=== PATIENT | female | born 1985 | race Caucasian/White ===

== ENCOUNTER → 2016-06-08 | Outpatient (CLI) | payer OTHER ==
[2016-06-08 12:00] LABS: CH 30.3; CHCM 34.6; HCT 37.8 % (34.0-46.0); HDW 2.67; HGB 12.9 gm/dL (11.4-16.0); MCH 30.1 pg (25.0-35.0); MCHC 34.2 g/dL (31.0-37.0); MCV 88.1 fL (80.0-100.0); Mean Platelet Volume 7.2; RDW 13.6 % (11.5-15.5); WBC 8.1 k/uL (3.8-10.6)
[2016-06-08 12:15] LABS: Glucose 71 mg/dL (74-99); Non-African American GFR(MDRD) >60 (>60 ml/min/1.73 sqM)
[2016-06-08 12:32] LABS: Appearance,Urine Clear (Clear); Bacteria,Urine Rare /hpf; Bilirubin,Urine Negative (Negative); Glucose,Urine (UA) Negative (Negative); Ketones,Urine Negative (Negative); Leukocyte Esterase,Urine Moderate (Negative); Mucus,Urine Rare /hpf; Nitrite,Urine Negative (Negative); PH, Urine 7.5 (5.0-8.0); Particle Count 1424; Protein,Urine Negative (Negative); RBC,Urine <1 /hpf (0-5); Squamous Epithelial Cell,Urine 2 /hpf (0-4); UA Billing (MACRO vs. MICRO) MICRO; Urobilinogen,Urine <2.0 mg/dL (<2.0); WBC,Urine <1 /hpf (0-5)
[2016-06-08 12:46] LABS: Hepatitis B Surface Ag Index 0.04
[2016-06-08 17:00] LABS: Treponemal Ab Non-Reactive (Non-Reactive)
[2016-06-09 07:22] LABS: HIV-1/HIV-2 Ab Screen NONREAC (NON REAC)
== END | disposition home or self-care (01) ==
LOC: LABWHC1 11:04
PROVIDERS: ATTEND Obstetrics & Gynecology
DX: O26.812 Pregnancy related exhaustion and fatigue, second trimester (principal); Z3A.00 Weeks of gestation of pregnancy not specified
CPT/HCPCS: 36415; 81001; 82105; 82565; 82677; 82947; 84702; 85027; 86336; 86762; 86777; 86778; 86780; 86850; 86900; 86901; 87086; 87340; 87389

== ENCOUNTER → 2016-06-23 | Outpatient (CLI) | payer BC, OTHER ==
--- NOTE | 2016-06-23 14:29 | US ---
EXAMINATION TYPE: US OB anatomy transabd DATE OF EXAM: 06/23/2016 9:56 AM COMPARISON: NONE HISTORY: LGA TECHNIQUE: OBTA EXAM MEASUREMENTS: GESTATIONAL AGE / DATING Physician Established: (19 weeks/0 days) EDC: 11/17/2016 Dates by LMP: (22weeks/3days) EDC: 10/24/2016 Dates by First Scan: (19 weeks/0 days) EDC: 11/17/2016 Dates by Current Scan for: (19 weeks/0 days) EDC: 11/17/2016 SURVEY IUP: Single PLACENTA: Posterior PREVIA: No previa ANAI: 12.5 cm normal CERVICAL LENGTH (transabdominal: norm > 3.0cm): 3.1 cm BIOMETRY PRESENTATION: Breech LIE: Transverse lie with head maternal L BPD: 4.3 cm 19 weeks / 1 days HC: 15.9 cm 18 weeks / 6 days AC: 13.7 cm 19 weeks / 1 days FL: 2.8 cm 18weeks / 4 days ESTIMATED WEIGHT IN GRAMS: 261 grams ESTIMATED WEIGHT IN LBS/OZS: 0 lbs. 9 oz. WEIGHT PERCENTAGE BASED ON ESTABLISHED DATE: 37 % HC/AC: 1.1 normal FL/AC: 20 normal HEART RATE: 161bpm RHYTHM: Normal ANATOMY SEEN (within normal limits): * Lateral Vent (< 1 cm) 0.7 cm * Cisterna Magna (< 1.1 cm) 0.3 cm * Nuchal Fold (< 0.6 cm) 0.2 cm * Cerebellum (varies with age) 1.8 cm Choroid Plexus (bilateral) Midline Falx Cavus Septi Pellucidi Four Chamber Heart Outflow tracts: LVOT/RVOT Stomach Situs Nose / Lips Diaphragm Kidneys (bilateral) Bladder Cord Insert Three Vessel Cord Longitudinal Spine Transverse Spine Arms (bilateral) Legs (bilateral) TECHNOLOGIST IMPRESSION: Normal appearing . IMPRESSION: 1. Single intrauterine gestation estimated at 19 weeks 0 days gestation. This would've a calculated E DC of 11/17/2016. Cardiac activity measures 161 bpm. Correlate findings with the physician established EDC.
== END | disposition home or self-care (01) ==
LOC: RADUSWWP 08:46
PROVIDERS: ATTEND Obstetrics & Gynecology
DX: O36.62X0 Maternal care for excessive fetal growth, second trimester, not applicable or unspecified (principal); Z3A.19 19 weeks gestation of pregnancy
CPT/HCPCS: 76811

== ENCOUNTER → 2016-06-29 | Outpatient (CLI) | payer BC, OTHER ==
--- NOTE | 2016-06-29 09:41 | USB ---
Reason for exam: clinical finding. Indicated problem(s): palpable abnormality in the right breast. Physical Findings: Nurse Summary: right breast with lump x 2 weeks per patient (nurse dw). US Breast RT Right breast ultrasound including all four quadrants, the retroareolar region and axilla demonstrates no cystic or solid lesion seen. These results were verbally communicated with the patient and result sheet given to the patient on 06/29/16. ASSESSMENT: Negative, BI-RAD 1 RECOMMENDATION: Clinical management of the right breast. Manage patient on a clinical basis.
== END | disposition home or self-care (01) ==
LOC: RADUSWWP 08:43
PROVIDERS: ATTEND Obstetrics & Gynecology
DX: N63 Unspecified lump in breast (principal)

== ENCOUNTER → 2016-07-27 | Outpatient (CLI) | payer BC, OTHER ==
[2016-07-27 10:42] LABS: CH 30.7; CHCM 34.2; HCT 38.1 % (34.0-46.0); HDW 2.72; HGB 12.1 gm/dL (11.4-16.0); MCH 28.6 pg (25.0-35.0); MCHC 31.6 g/dL (31.0-37.0); MCV 90.3 fL (80.0-100.0); Mean Platelet Volume 6.7; RBC 4.22 m/uL (3.80-5.40); RDW 13.6 % (11.5-15.5)
== END ==
LOC: LABWHC1 09:18
PROVIDERS: ATTEND Obstetrics & Gynecology
DX: Z34.02 Encounter for supervision of normal first pregnancy, second trimester (principal)
CPT/HCPCS: 36415; 82950; 85027

== ENCOUNTER → 2016-09-29 | Outpatient (CLI) | payer BC, OTHER ==
--- NOTE | 2016-09-29 15:22 | US ---
EXAMINATION TYPE: US OB anatomy transabd DATE OF EXAM: 09/29/2016 10:12 AM COMPARISON: US HISTORY: O36.63XO Large for dates 3rd trimester LGA TECHNIQUE: Transabdominal (TA) EXAM MEASUREMENTS: GESTATIONAL AGE / DATING Physician Established: (33 weeks/0 days) EDC: 11/17/2016 Dates by LMP: (36 weeks/3 days) EDC: 10/24/2016 Dates by First Scan: (33 weeks/0 days) EDC: 11/17/2016 Dates by Current Scan for: (31 weeks/2 days) EDC: 11/29/2016 SURVEY IUP: Single PLACENTA: Fundal PREVIA: No previa ANAI: 12.2 cm Normal CERVICAL LENGTH (transabdominal: norm > 3.0cm): 3.6 cm BIOMETRY PRESENTATION: Breech LIE: Longitudinal BPD: 7.8 cm 31 weeks / 2 days HC: 28.4 cm 31 weeks / 1 days AC: 27.4 cm 31 weeks / 3 days FL: 6.3 cm 32 weeks / 3 days ESTIMATED WEIGHT IN GRAMS: 1814 grams ESTIMATED WEIGHT IN LBS/OZS: 4 lbs. 0 oz. WEIGHT PERCENTAGE BASED ON ESTABLISHED DATE: 10.3 % HC/AC: 1.04 Normal FL/AC: 22.84 Normal HEART RATE: 138 bpm RHYTHM: Normal ANATOMY SEEN (within normal limits): Midline Falx Cavus Septi Pellucidi Four Chamber Heart Outflow tracts: RVOT Stomach Situs Nose / Lips Diaphragm Kidneys (bilateral) Bladder Cord Insert Three Vessel Cord Longitudinal Spine Transverse Spine ANATOMY NOT SEEN: Due to advanced age, crowding * Lateral Vent (< 1 cm) cm * Cisterna Magna (< 1.1 cm) cm * Nuchal Fold (< 0.6 cm) cm * Cerebellum (varies with age) cm Choroid Plexus (bilateral) Outflow Tracts: LVOT Arms (bilateral) Legs (bilateral) Viable single IUP measuring 31 weeks 2 days with a heart rate of 138bpm and an estimated delivery kelly e of 11/29/2016. IMPRESSION: 1. Exam limited due to age. 2. Single intrauterine gestation estimated at 31 weeks 2 days gestation. This would have a calculated EDC of 11/29/2016. 3. Cardiac activity measures 138 bpm.
== END | disposition home or self-care (01) ==
LOC: RADUSWWP 09:36
PROVIDERS: ATTEND Obstetrics & Gynecology
DX: O36.63X0 Maternal care for excessive fetal growth, third trimester, not applicable or unspecified (principal); Z3A.33 33 weeks gestation of pregnancy
CPT/HCPCS: 76811

== ENCOUNTER 2016-11-10 10:20 | Inpatient (IN) | payer BC, OTHER ==
[2016-11-10] MEDS ORDERED: CITRIC ACID-SODIUM CITRATE 15 ML CUP PO ONE (11:10)
[2016-11-10] MEDS ORDERED: ceFAZolin 2 GM in SODIUM CHLORIDE 0.9% 100 ML IVPB ONE (11:10)
[2016-11-10] MEDS ORDERED: LACTATED RINGERS 1,000 ML IV ONE (11:10)
[2016-11-10 11:35] VITALS: BMI 23.6
[2016-11-10 11:37] LABS: Basophils % (A) 0 %; CH 31.3; CHCM 35.9; Eosinophils % (A) 0 %; HCT 39.2 % (34.0-46.0); HDW 2.39; Luc # (Auto) 0.08; Luc % (Auto) 1; Lymphocytes # (A) 1.3 k/uL (1.0-4.8); Lymphocytes % (A) 10 %; MCH 31.2 pg (25.0-35.0); MCHC 35.7 g/dL (31.0-37.0); MCV 87.5 fL (80.0-100.0); Mean Platelet Volume 8.3; Monocytes # (A) 0.4 k/uL (0-1.0); Monocytes % (A) 3 %; Neutrophils # (A) 11.2 k/uL (1.3-7.7); Neutrophils % (A) 86 %; RBC 4.49 m/uL (3.80-5.40); WBC (Perox) 12.62
[2016-11-10 11:45] LABS: ALT 41 U/L (9-52); AST 31 U/L (14-36); Blood Urea Nitrogen 19 mg/dL (7-17); LDH 602 U/L (313-618); Non-African American GFR(MDRD) >60 (>60 ml/min/1.73 sqM); Uric Acid 6.7 mg/dL (3.7-7.4)
[2016-11-10 12:00] LABS: INR 0.9 (<1.1); Partial Thromboplastin Time 23.2 sec (22.0-30.0); Prothrombin Time 9.4 sec (9.0-12.0)
[2016-11-10 12:13] LABS: Appearance,Urine Cloudy (Clear); Bacteria,Urine Rare /hpf; Bilirubin,Urine Negative (Negative); Glucose,Urine (UA) Negative (Negative); Ketones,Urine Negative (Negative); Leukocyte Esterase,Urine Small (Negative); Mucus,Urine Few /hpf; Nitrite,Urine Negative (Negative); PH, Urine 6.5 (5.0-8.0); Particle Count 5995; Protein,Urine 2+ (Negative); RBC,Urine 14 /hpf (0-5); Specific Gravity,Urine 1.029 (1.001-1.035); Squamous Epithelial Cell,Urine 6 /hpf (0-4); UA Billing (MACRO vs. MICRO) MICRO; WBC,Urine 4 /hpf (0-5)
[2016-11-10] MEDS ORDERED: OXYTOCIN 10 UNIT/ML 1 ML VIAL ONE (12:28)
[2016-11-10] MEDS ORDERED: MORPHINE SULFATE (PF) 0.3 MG/0.3 ML SYR ONE (12:28)
[2016-11-10] MEDS ORDERED: ONDANSETRON 4 MG/2 ML VIAL ONE (12:28)
[2016-11-10] MEDS ORDERED: KETOROLAC 30 MG/ML 1 ML VIAL ONE (12:28)
[2016-11-10] MEDS ORDERED: fentaNYL (PF) 50 MCG/ML 2 ML AMP ONE (12:28)
[2016-11-10] MEDS ORDERED: NALBUPHINE 10 MG/ML AMPUL ONE (12:28)
[2016-11-10] MEDS ORDERED: diphenhydrAMINE 25 MG CAP PO PRN (13:19)
[2016-11-10] MEDS ORDERED: NALOXONE 0.4 MG/ML 1 ML VIAL IV PRN (13:19)
[2016-11-10] MEDS ORDERED: METOCLOPRAMIDE 5 MG/ML 2 ML VIAL IVP PRN (13:19)
[2016-11-10] MEDS ORDERED: diphenhydrAMINE 50 MG/ML 1 ML VIAL IVP PRN ×2 (13:19)
[2016-11-10] MEDS ORDERED: ONDANSETRON 4 MG/2 ML VIAL IVP PRN (13:19)
[2016-11-10] MEDS ORDERED: ZOLPIDEM 5 MG TAB PO PRN (13:19)
[2016-11-10] MEDS ORDERED: ACETAMINOPHEN TAB 325 MG TAB PO PRN (13:19)
[2016-11-10] MEDS ORDERED: diphenhydrAMINE 50 MG CAP PO PRN (13:19)
[2016-11-10] MEDS ORDERED: Acetaminophen-Codeine 300-30mg TAB PO PRN (13:19)
--- NOTE | 2016-11-10 13:26 | P.HPOB ---
History of Present Illness H&P Date: 11/10/16 Chief Complaint: Intrauterine at term: Active labor: Ashvin breech Netta is a 31-year-old at 38 weeks 6 days gestation arise in active labor making cervical change. She is breech from previous ultrasounds and she continues to be breech today. She is in active labor. We'll plan to move forward with primary low-transverse section for same area her course had been generally speaking unremarkable and she was feeling well at this time she did have a small lump in her breast that had been evaluated by surgery but no treatments have been rendered to this point. We'll continue to monitor that and refer back to surgery. Pertinent labs did include O+ blood type, rubella was immune, hepatitis B surface antigen and RPR were both negative as well. On physical exam vital signs are stable and afebrile. Heart regular, lungs clear, extremities without pain. Abdomen soft gravid uterus is noted. heart tones are reactive in the 140s. Risks/benefits/ alternatives to this procedure were discussed with the patient in detail and all questions were answered for her prior to proceeding to the operating room. Assessment intrauterine at term. Active labor. Breech presentation. Plan primary low transverse section Past Medical History Past Medical History: No Reported History History of Any Multi-Drug Resistant Organisms: None Reported Past Surgical History: No Surgical Hx Reported Past Anesthesia/Blood Transfusion Reactions: No Reported Reaction Additional Past Anesthesia/Blood Transfusion Reaction / Comment(s): NO PRIOR SX OR ANESTHESIA HX Past Psychological History: No Psychological Hx Reported Smoking Status: Never smoker Past Alcohol Use History: None Reported Past Drug Use History: None Reported - Past Family History Mother Family Medical History: No Reported History Additional Family Medical History / Comment(s): sodium problems, bladder issues- prolapse Father Family Medical History: Coronary Artery Disease (CAD) Additional Family Medical History / Comment(s): Medications and Allergies Home Medications Medication Instructions Recorded Confirmed Type Calcium Carbonate [Tums] 500 mg PO TID PRN 11/10/16 11/10/16 History Pnv,Calcium 72/Iron/Folic Acid 1 tab PO DAILY 11/10/16 11/10/16 History [ Plus Tablet] Allergies Allergy/AdvReac Type Severity Reaction Status Date / Time No Known Allergies Allergy Verified 11/10/16 11:08 Exam Osteopathic Statement: *. No significant issues noted on an osteopathic structural exam other than those noted in the History and Physical/Consult. - Vital Signs Vital signs: Vital Signs Temp Pulse Resp BP Pulse Ox 11/10/16 11:22 96.4 F L 78 18 136/98 100 11/10/16 10:40 136/105 11/10/16 10:33 138/100 11/10/16 10:30 96.4 F L 78 18 136/98 100 Intake and Output 11/09/16 11/10/16 11/10/16 22:59 06:59 14:59 Other: Weight 56.699 kg Patient Weight 11/11/16 06:59 Weight 56.699 kg - OBG Physical Exam Abdomen: bowel sounds normal, no diffuse tenderness, no bruit present, no guarding noted, no hepatomegaly, no splenomegaly, no mass Results Result Diagrams: 11/10/16 11:15 11/10/16 11:15 Abnormal Lab Results - Last 24 Hours (Table) 11/10/16 11/10/16 11/10/16 Range/Units 11:15 11:15 11:50 WBC 13.0 H (3.8-10.6) k/uL Neutrophils # 11.2 H (1.3-7.7) k/uL BUN 19 H (7-17) mg/dL Urine Appearance Cloudy H (Clear) Urine Protein 2+ H (Negative) Ur Leukocyte Esterase Small H (Negative) Urine RBC 14 H (0-5) /hpf Ur Squamous Epith Cells 6 H (0-4) /hpf Urine Bacteria Rare H (None) /hpf Urine Mucus Few H (None) /hpf
--- NOTE | 2016-11-10 13:30 | P.OP ---
Date of Procedure: 11/10/16 Preoperative Diagnosis: Intrauterine at 38 weeks/active labor/breech presentation Postoperative Diagnosis: Same Procedure(s) Performed: Primary low transverse section from Pfannenstiel Implants: Anesthesia: spinal Surgeon: Sivakumar Shah Manager Motor #1: Sabina Acosta Estimated Blood Loss (ml): 400 IV fluids (ml): 1,500 Urine output (ml): 75 Pathology: other (Placenta) Condition: stable Disposition: floor Indications for Procedure: Operative Findings: Viable female scores 8 and 9 at one and 5 minutes Neeta weight was 5 lbs. 0 oz. 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 She was prepped and draped in normal sterile fashion and placed in dorsal supine position with leftward tilt. Initially a Pfannenstiel skin incision was made and this incision was then carried through to underlying layer of the fascia was second knife. Fascia was then nicked in the midline and this opening was extended laterally with Stanley scissors. Superior and inferior aspect of this incision were then grasped tented up and bluntly and sharply dissected off the rectus muscles. Rectus muscles were then divided the midline and sharp dissection through the peritoneum was made. This opening was then extended superiorly and inferiorly with good visualization of both bowel bladder. Bladder blade was then placed and the vesicouterine peritoneum identified this tissue was then elevated entered with metastases scissors and carried across face the uterus with Metzenbaum scissors. Bladder flap was then digitally created. Knife was then used to incise uterus hemostat was used to perforate through the uterus all the way and the incision was bluntly extended. Clear fluid is noted. Because then delivered bring the baby down into the incision legs were fully delivered first the left shoulders and the right shoulder had the arms swept from the face to deliver a nuchal cord 1 was noted but baby was delivered through that and head was atraumatically delivered. Nursery personnel was present to assume care umbilical cord was clamped cut usual fashion an mouth nares were bulb suctioned. Once this was accomplished placenta was then delivered intact and Pitocin was added to the IV. Uterus was then exteriorized cleared of clots and debris and closed in 2 layers with 0 Vicryl suture. Should be noted the patient did have a what appears to be bicornuate uterus with very small right horn. Blood and debris was then suctioned the posterior cul-de-sac and uterus was reinserted into the abdomen. There needle layer was then closed with 0 Vicryl suture fascial layer was closed with 0 Vicryl suture one layer of 3-0 Vicryl was placed in deep subcuticular tissues to reapproximate skin and close space. Skin was then closed with 3-0 Vicryl on a Jesus needle. Sponge, lap, needle counts were all correct 2. Patient taken to the recovery room in stable and satisfactory condition.
[2016-11-10] MEDS: LACTATED RINGERS 1,000 ML IV SCH (16:31)
[2016-11-10] MEDS: SENNOSIDES-DOCUSATE SODIUM 1 EACH TAB PO SCH (20:25)
[2016-11-10] MEDS: KETOROLAC 30 MG/ML 1 ML VIAL IVP PRN (20:26)
[2016-11-10] MEDS ORDERED: DIPH,PERTUS(ACELL)TETVAC-LF 0.5 ML VIAL IM ONE (22:10)
[2016-11-11] MEDS: LACTATED RINGERS 1,000 ML IV SCH (01:18)
[2016-11-11] MEDS: KETOROLAC 30 MG/ML 1 ML VIAL IVP PRN ×2 (02:54→12:22)
--- NOTE | 2016-11-11 08:18 | P.PNOBGPC ---
Subjective - Subjective Principal diagnosis: Postop day 1 Interval history: Netta is doing very well this morning. She is able to ambulate. Instruments currently she is tolerating clear liquids. She did have some bleeding from around her incision last night a pressure dressing was placed will plan to remove the pressure dressing this afternoon and allow her to shower. She voices no signs or symptoms of acute anemia but CBC is still pending. Vital signs are otherwise stable she's had several slightly elevated blood pressures in the 150/90 range but she is completely asymptomatic. Her heart is regular, lungs are clear, extremities are without pain. Abdomen is otherwise soft and the uterus is firm. We did have a discussion again about shaped for uterus and for us to really be able to tell what is potentially going on she may have to have a hysterosalpingogram but as she did not have any significant problems with the may also not be needed. Assessment postop day 1. Plan continue current care. Objective - Vital Signs Latest vital signs: Vital Signs Temp Pulse Resp BP Pulse Ox 11/11/16 04:00 97.9 F 65 16 127/79 97 11/11/16 00:00 98.4 F 58 L 16 148/92 11/10/16 20:00 97.6 F 64 16 145/96 11/10/16 15:41 65 18 145/89 99 11/10/16 15:17 97.2 F L 65 18 139/90 99 11/10/16 14:47 96.4 F L 63 18 140/68 99 11/10/16 14:17 69 18 141/81 99 11/10/16 14:02 71 18 114/78 95 11/10/16 13:47 96.9 F L 74 18 115/79 99 11/10/16 13:32 68 18 124/82 99 11/10/16 13:17 96.7 F L 63 18 131/80 99 11/10/16 11:22 96.4 F L 78 18 136/98 100 11/10/16 10:40 136/105 11/10/16 10:33 138/100 11/10/16 10:30 96.4 F L 78 18 136/98 100 Intake and Output 11/10/16 11/11/16 11/11/16 22:59 06:59 14:59 Intake Total 675 300 Output Total 1000 1000 Balance -325 -700 Intake: IV 375 Lactated Ringers 1,000 ml 375 @ 125 mls/hr IV .Q8H [facility] Rx#:[id number] Oral 300 300 Output: Urine 600 1000 Uretheral ([place]) 300 Estimated Blood Loss 400 Other: Voiding Method Indwelling Catheter # Voids 1 1 - Labs Labs: Abnormal Lab Results - Last 24 Hours (Table) 11/10/16 11/10/16 11/10/16 Range/Units 11:15 11:15 11:50 WBC 13.0 H (3.8-10.6) k/uL Neutrophils # 11.2 H (1.3-7.7) k/uL BUN 19 H (7-17) mg/dL Urine Appearance Cloudy H (Clear) Urine Protein 2+ H (Negative) Ur Leukocyte Esterase Small H (Negative) Urine RBC 14 H (0-5) /hpf Ur Squamous Epith Cells 6 H (0-4) /hpf Urine Bacteria Rare H (None) /hpf Urine Mucus Few H (None) /hpf
[2016-11-11] MEDS: SENNOSIDES-DOCUSATE SODIUM 1 EACH TAB PO SCH ×2 (08:19→19:47)
[2016-11-11 08:21] LABS: Basophils % (A) 0 %; CH 31.3; CHCM 35.5; Eosinophils # (A) 0.1 k/uL (0-0.7); Eosinophils % (A) 1 %; HCT 33.6 % (34.0-46.0); HDW 2.34; HGB 11.7 gm/dL (11.4-16.0); Luc # (Auto) 0.09; Luc % (Auto) 1; Lymphocytes # (A) 1.5 k/uL (1.0-4.8); Lymphocytes % (A) 13 %; MCV 88.5 fL (80.0-100.0); Mean Platelet Volume 7.8; Monocytes # (A) 0.5 k/uL (0-1.0); Monocytes % (A) 4 %; Neutrophils # (A) 9.7 k/uL (1.3-7.7); Neutrophils % (A) 82 %; RDW 13.3 % (11.5-15.5); WBC 11.8 k/uL (3.8-10.6); WBC (Perox) 12.15
--- NOTE | 2016-11-11 09:22 | P.PN ---
Progress Note - Text Date: 11/11/2016 Time: 827 The patient is status post section Vital signs stable VAS: 0-10 Patient has no complaints of pain. The patient incurred some minimal itching yesterday, this itching is now subsiding. Pain meds to be managed by service.
[2016-11-11] MEDS: Acetaminophen-Codeine 300-30mg TAB PO PRN (19:46)
[2016-11-11] MEDS: IBUPROFEN 600 MG TAB PO PRN (22:20)
[2016-11-12] MEDS: IBUPROFEN 600 MG TAB PO PRN ×2 (04:11→13:49)
[2016-11-12] MEDS: SENNOSIDES-DOCUSATE SODIUM 1 EACH TAB PO SCH (08:58)
[2016-11-12] MEDS: Acetaminophen-Codeine 300-30mg TAB PO PRN (08:59)
[2016-11-12 09:23] VITALS: BP 119/74; PULSE 69; RESP 18; TEMP 98.2
--- NOTE | 2016-11-12 11:36 | P.DS ---
Providers Date of admission: 11/10/16 11:10 Expected date of discharge: 11/12/16 Attending physician: Sivakumar Shah Primary care physician: Stated None Hospital Course: Netta is doing very well postop day 2. She is involuting, voiding, and she is tolerating her diet. She voices no complaints. She is passing flatus. Shows have some gas pain but otherwise is doing well. Her vital signs are stable and she is afebrile. Heart regular, lungs clear, extremities without pain. Abdomen is soft incisions clean dry and intact bowel sounds are noted. Assessment postop day 2. Plan discharged home follow up with me in 1 week. Prescription for pain medication breast pump has been provided all questions are answered and discharge instructions thoroughly reviewed. Assessment postop day 2. Plan discharged home. Patient Condition at Discharge: Good Plan - Discharge Summary New Discharge Prescriptions: New Acetaminophen-Codeine 300-30mg [Tylenol #3] 1 tab PO Q4H PRN #30 tablet PRN Reason: Pain Ibuprofen [Motrin] 600 mg PO Q6HR PRN #30 tab PRN Reason: Pain No Action Calcium Carbonate [Tums] 500 mg PO TID PRN PRN Reason: Heartburn Pnv,Calcium 72/Iron/Folic Acid [ Plus Tablet] 1 tab PO DAILY Discharge Medication List Calcium Carbonate [Tums] 500 mg PO TID PRN 11/10/16 [History] Pnv,Calcium 72/Iron/Folic Acid [ Plus Tablet] 1 tab PO DAILY 11/10/16 [ History] Acetaminophen-Codeine 300-30mg [Tylenol #3] 1 tab PO Q4H PRN #30 tablet [Rx] Ibuprofen [Motrin] 600 mg PO Q6HR PRN #30 tab 11/12/16 [Rx] Follow up Appointment(s)/Referral(s): Sivakumar Shah DO [Doctor of Osteopathic Medicine] - 1 Week Activity/Diet/Wound Care/Special Instructions: No heavy lifting, limit stairs and driving, and pelvic rest. If any high temperatures, heavy bleeding, or severe pain call my office Discharge Disposition: HOME SELF-CARE
[2016-11-12] MEDS ORDERED: SIMETHICONE 80 MG CHEWABLE PO SCH (13:00)
== END 2016-11-12 14:17 | disposition home or self-care (01) | DRG 766 ==
LOC: FBPOP 10:20 → 4FBP 11:10
PROVIDERS: ADMIT Obstetrics & Gynecology; ATTEND Obstetrics & Gynecology
PROC: 10D00Z1 Extraction of Products of Conception, Low, Open Approach (ICD-10-PCS; principal; 2016-11-10 12:30)
DX: O32.1XX0 Maternal care for breech presentation, not applicable or unspecified (principal); O34.03 Maternal care for unspecified congenital malformation of uterus, third trimester; O69.81X0 Labor and delivery complicated by cord around neck, without compression, not applicable or unspecified; Q51.3 Bicornate uterus; Z37.0 Single live birth; Z3A.38 38 weeks gestation of pregnancy; Z82.49 Family history of ischemic heart disease and other diseases of the circulatory system
CPT/HCPCS: 59025; 81001; 82565; 83615; 84450; 84460; 84520; 84550; 85025; 85610; 85730; 86850; 86900; 86901; 88307; 90471; 90715; 99213

== ENCOUNTER 2021-01-27 07:29 | Day surgery (SDC) | payer BC, OTHER ==
[~2021-01-27 07:29] MED LIST: DEXAMETHASONE SOD PHOSPHATE 4 MG/ML 1 ML VIAL IV ONE; LACTATED RINGERS 1,000 ML IV SCH; Pre Op ABX Message 1 EACH MISC MISCELLANE ONE
--- NOTE | 2021-01-27 07:50 | P.HPOB ---
History of Present Illness H&P Date: 01/27/21 Chief Complaint: Family planning Netta is a 35-year-old female who has completed her family planning desires permanent sterilization. Risks/benefits/alternatives to this procedure were reviewed with the patient in detail prior to proceeding to the operative room. Consents were signed surgical procedure explained in great detail and her satisfaction and otherwise we'll move forward with left scopic tubal occlusion with Filshie clips. She is aware that this is signed be a permanent procedure. Past Medical History Past Medical History: No Reported History History of Any Multi-Drug Resistant Organisms: None Reported Past Surgical History: Section Past Anesthesia/Blood Transfusion Reactions: No Reported Reaction, Motion Sickness Additional Past Anesthesia/Blood Transfusion Reaction / Comment(s): mild motion sickness hx Smoking Status: Never smoker - Past Family History Mother Family Medical History: No Reported History Additional Family Medical History / Comment(s): sodium problems, bladder issues-prolapse, blood clot on the brain - 10/2020 Father Family Medical History: Coronary Artery Disease (CAD) Additional Family Medical History / Comment(s): Medications and Allergies Home Medications Medication Instructions Recorded Confirmed Type Acetaminophen Tab [Tylenol] 325 mg PO Q4H PRN 01/24/21 01/24/21 History Multivitamins, Thera [Multivitamin 1 tab PO DAILY 01/24/21 01/24/21 History (formulary)] Sertraline [Zoloft] 50 mg PO DAILY 01/24/21 01/24/21 History Vitamin C (Unknown Dose) 1 tab PO DAILY 01/24/21 History Vitamin D3 (Unknown Dose) 1 tab PO DAILY 01/24/21 History Zinc (Unknown Dose) 1 tab PO DAILY 01/24/21 History Allergies Allergy/AdvReac Type Severity Reaction Status Date / Time No Known Allergies Allergy Verified 01/27/21 07:45 Exam Osteopathic Statement: *. No significant issues noted on an osteopathic structural exam other than those noted in the History and Physical/Consult. - OBG Physical Exam Breast: both: normal (no masses) Abdomen: bowel sounds normal, no diffuse tenderness, no bruit present, no guarding noted, no hepatomegaly, no splenomegaly, no mass Vulva: both: normal Vagina: normal moisture, no discharge Cervix: no lesion, no discharge Uterus: normal size, normal contour Adnexa: both: normal Anus/Rectum: normal perianal skin, no rectal mass, no hemorrhoids, heme negative
[2021-01-27] MEDS ORDERED: LIDOCAINE 1% (10MG/ML) FOR IV START INTRAPLEUR ONE (08:05)
[2021-01-27] MEDS: ONDANSETRON 4 MG/2 ML VIAL IVP ONE ×2 (08:10→13:34)
[2021-01-27] MEDS ORDERED: fentaNYL (PF) 50 MCG/ML 2 ML AMP ONE (09:20)
[2021-01-27] MEDS ORDERED: PROPOFOL 10 MG/ML 20 ML VIAL IV ONE (09:20)
[2021-01-27] MEDS ORDERED: LIDOCAINE 1% INJ 10MG/ML (20 ML MDV) ONE (09:20)
[2021-01-27] MEDS ORDERED: KETOROLAC 15 MG/ML 1 ML VIAL ONE (09:20)
[2021-01-27] MEDS ORDERED: SUCCINYLCHOLINE CHLORIDE 100 MG/5 ML SYR IV ONE (09:20)
[2021-01-27] MEDS ORDERED: ROCURONIUM 10 MG/ML (5 ML VIAL) IV ONE (09:20)
[2021-01-27] MEDS ORDERED: MIDAZOLAM 2 MG/2 ML VIAL ONE (09:20)
[2021-01-27] MEDS ORDERED: BUPIVACAINE (PF) 0.5% 30 ML VIAL SQ ONE ×2 (09:24→09:45)
[2021-01-27] MEDS ORDERED: LACTATED RINGERS 1,000 ML IV ONE (10:00)
--- NOTE | 2021-01-27 10:10 | P.OP ---
Date of Procedure: 01/27/21 Preoperative Diagnosis: Family planning Postoperative Diagnosis: Same with incidental notation of essentially obliterated right fallopian tube and stage II endometriosis Procedure(s) Performed: Laps scopic tubal occlusion with clips Anesthesia: MIKE Surgeon: Sivakumar Shah Estimated Blood Loss (ml): 5 IV fluids (ml): 500 Urine output (ml): 250 Pathology: none sent Condition: stable Disposition: same day Operative Findings: Stage II endometriosis with multiple powder burn lesions noted throughout the pelvis. Right fallopian tube essentially obliterated looked combined with round ligament at the exit point of the round ligament and the uterus we did clip a clip to the fimbriated end which was still evident. Description of Procedure: Patient was taken to the operating suite where a general anesthetic was found be adequate. She was prepped and draped in the normal sterile fashion and placed in the dorsal lithotomy position. Initially a speculum was inserted in the vagina into lip of cervix identified and grasped with single-tooth tenaculum. Uterus was then sounded to 8 cm and a uterine manipulator was inserted without difficulty. Red rubber cath was then used to drain the bladder of urine the other instruments removed. Gloves were then changed and attention was turned to the abdominal portion of the procedure where 2 mL of quarter percent Marcaine was injected periumbilically. Through this injected anesthetic a 5 mm skin incision was made and through this incision, under direct visualization with an optical trocar and sleeve the camera was inserted. Once peritoneal placement was assured gas was allowed to fully insufflate the abdomen and patient was then placed in steep Trendelenburg position. A second port and sleeve were then inserted through a 8 mm skin incision in her old scar. Uterus was then elevated and observations the pelvis were noted as above. Since she was consented no treatment for any vitreous was done but multiple pictures were taken slit we can identify the areas and consideration if she is having pain for Yajaira or Lupron Deppe can be made. Right fallopian tube was per To obliterated coming through the round ligament area but a clip was placed near the fimbriated and occluding the remainder of the tube. Left fallopian tube was then occluded with a Filshie clip 2 cm from uterine cornu. All instruments were then removed and gas allowed to expel from the abdomen. 5 deep breaths were provided during this process. 4-0 Vicryl was then used to close incision subcuticular. Her another 8 mL of quarter percent Marcaine was injected around the incisions. Sponge, lap, needle counts were all correct 2 and the instrument removed from the vagina. She tolerated surgery very well. She was taken to the recovery room in stable and satisfactory condition. Plan - Discharge Summary Discharge Rx Participant: No New Discharge Prescriptions: New Acetaminophen-Codeine 300-30mg [Tylenol #3] 1 tab PO Q4H PRN #20 tablet PRN Reason: Pain Ibuprofen [Motrin] 600 mg PO Q6HR PRN #30 tab PRN Reason: Pain No Action Sertraline [Zoloft] 50 mg PO DAILY Multivitamins, Thera [Multivitamin (formulary)] 1 tab PO DAILY Vitamin C (Unknown Dose) 1 tab PO DAILY Acetaminophen Tab [Tylenol] 325 mg PO Q4H PRN PRN Reason: Pain Zinc (Unknown Dose) 1 tab PO DAILY Vitamin D3 (Unknown Dose) 1 tab PO DAILY Discharge Medication List Acetaminophen Tab [Tylenol] 325 mg PO Q4H PRN 01/24/21 [History] Multivitamins, Thera [Multivitamin (formulary)] 1 tab PO DAILY 01/24/21 [History] Sertraline [Zoloft] 50 mg PO DAILY 01/24/21 [History] Vitamin C (Unknown Dose) 1 tab PO DAILY 01/24/21 [History] Vitamin D3 (Unknown Dose) 1 tab PO DAILY 01/24/21 [History] Zinc (Unknown Dose) 1 tab PO DAILY 01/24/21 [History] Acetaminophen-Codeine 300-30mg [Tylenol #3] 1 tab PO Q4H PRN #20 tablet 01/27/21 [Rx] Ibuprofen [Motrin] 600 mg PO Q6HR PRN #30 tab 01/27/21 [Rx] Follow up Appointment(s)/Referral(s): Sivakumar Shah DO [Doctor of Osteopathic Medicine] - 10 Days Activity/Diet/Wound Care/Special Instructions: No heavy lifting, limit stairs and driving, and pelvic rest. If any high temperatures, heavy bleeding, or severe pain call my office
[2021-01-27 10:26] VITALS: TEMP 96.9
[2021-01-27] MEDS: HYDROmorphone 0.5 MG/0.5 ML SYRINGE IVP PRN ×3 (10:36→11:06)
[2021-01-27] MEDS ORDERED: Acetaminophen-Codeine 300-30mg TAB ONE (11:42)
[2021-01-27] MEDS ORDERED: Acetaminophen-Codeine 300-30mg TAB PO ONE (11:43)
[2021-01-27 13:25] VITALS: RESP 16
[2021-01-27] MEDS ORDERED: ONDANSETRON 4 MG/2 ML VIAL ONE (13:34)
[2021-01-27 13:41] VITALS: BP 104/62; PULSE 69
== END 2021-01-27 14:15 | disposition home or self-care (01) ==
LOC: OR 07:29
PROVIDERS: ATTEND Obstetrics & Gynecology
DX: Z30.2 Encounter for sterilization (principal); F32.9 Major depressive disorder, single episode, unspecified; Z82.49 Family history of ischemic heart disease and other diseases of the circulatory system; N97.1 Female infertility of tubal origin; N80.9 Endometriosis, unspecified; Z79.899 Other long term (current) drug therapy
CPT/HCPCS: 58671; 81025; J2250; J1100; J2405; J2001; J3010; J1885; J0330; J2704; J1170